=== PATIENT | male | born 1950 | race Caucasian/White ===

== ENCOUNTER 2025-02-07 10:52 | Day surgery (SDC) | payer MEDICARE, BC ==
[2025-02-04 15:39] LABS: BASOPHILS % (AUTO) 0.5 % (0-1); EOSINOPHILS # (AUTO) 0.2 X10'3 (0-0.9); LYMPHOCYTES # (AUTO) 1.2 X10'3 (1.1-4.8); MEAN CORPUSCULAR HEMOGLOBIN 23.4 PG (27.0-31.0); MEAN CORPUSCULAR HGB CONC 31.7 g/dL (33.0-36.5); MEAN PLATELET VOLUME 6.6 FL (7.4-10.4); MONOCYTES # (AUTO) 0.9 X10'3 (0-0.9); MONOCYTES % (AUTO) 9.5 % (2-12); PRE OP HEMATOCRIT 28.9 % (42.0-52.0); PRE OP PLATELET COUNT 446 X10'3 (140-440); PRE OP WHITE BLOOD COUNT 9.4 10'3 (4.8-10.8)
[2025-02-04 15:46] LABS: PRE OP HEMOGLOBIN 9.1 g/dL (14.0-17.9)
[2025-02-04 15:49] LABS: ALBUMIN 3.5 G/DL (3.4-5.0); ALKALINE PHOSPHATASE 134 IU/L (46-116); BLOOD UREA NITROGEN 11 MG/DL (7-18); BUN/CREATININE RATIO 10.9 (10.0-20.0); CALCIUM 8.5 MG/DL (8.5-10.1); CHLORIDE 97 MMOL/L (99-107); CREATININE 1.01 MG/DL (0.60-1.10); PRE OP ALT 27 U/L (30-65); PRE OP ANION GAP 6 (8-16); PRE OP AST 15 U/L (10-37); PRE OP BILIRUB, TOTAL 0.5 MG/DL (0.0-1.0); PRE OP GLUCOSE 157 MG/DL (70-104); PRE OP POTASSIUM 4.6 MMOL/L (3.4-5.1); PRE OP SODIUM 134 MMOL/L (135-145); TOTAL CARBON DIOXIDE 30.7 MMOL/L (24-32); eGFR 72 ML/MIN
[~2025-02-07] VITALS: Ht 170.2 cm; Wt 80.5 kg
[~2025-02-07 10:52] MED LIST: ALBU90AE; ASPI-1397 PO; BECL10.62; DILT120C77 PO; DULA3PEN; FLUT1BLS10 PO; FURO20TA4 PO; HYDR-3973 PO; INSU100I99 SQ; IPRA3AMP31 NEB; LISI5TAB22 PO; METF-437 PO; PANT40TA54 PO; POTA-205 PO; ROSU10TA72 PO; ringers solution, lacted 1,000 ML IV SCH
[2025-02-07 11:30] VITALS: BP 128/73; PULSE 95; RESP 16; TEMP 97.8; O2SAT 95; O2SAT 97
[2025-02-07] MEDS ORDERED: morphine 2 MG/ML inj. syringe IV PRN (11:50)
[2025-02-07] MEDS ORDERED: ringers solution, lacted 1,000 ML IV SCH (11:50)
[2025-02-07] MEDS ORDERED: morphine 4 MG/ML inj SYRINge IV PRN (11:50)
[2025-02-07] MEDS ORDERED: meperidine/PF 25mg/ml syringe IV PRN (11:50)
[2025-02-07] MEDS ORDERED: ondansetron/PF 4mg/2ml inj IV PRN (11:50)
[2025-02-07] MEDS ORDERED: proCHLORperazine 10 MG/2 ml inj IV PRN (11:50)
[2025-02-07] MEDS: famotidine 20mg tablet PO ONE (11:54)
[2025-02-07] MEDS ORDERED: fentaNYL/PF 50MCG/1 ML 2ML syringe ONE (13:11)
[2025-02-07] MEDS ORDERED: dexamethasone sod phosphate 4mg/ml inj. ONE (13:12)
[2025-02-07] MEDS ORDERED: propofol inj 20 ML IV ONE (13:12)
[2025-02-07] MEDS ORDERED: sevoflurane 250ml liquid IH ONE (13:14)
[2025-02-07] MEDS ORDERED: rocuronium 10mg/ml inj IV ONE (13:14)
[2025-02-07] MEDS ORDERED: ondansetron/PF 4mg/2ml inj ONE (13:49)
[2025-02-07] MEDS ORDERED: glycopyrrolate 0.2mg/ml inj ONE (13:56)
[2025-02-07] MEDS ORDERED: neostigmine methylsulfate 1 MG/ML 10ml vial ONE (13:56)
[2025-02-07] MEDS ORDERED: ePHEDrine 50MG/ML INJ. ONE (13:56)
[2025-02-07 14:16] VITALS: BP 139/79; PULSE 94; RESP 16; O2SAT 100
[2025-02-07 14:20] VITALS: BP 128/68; PULSE 95; RESP 25; O2SAT 100
[2025-02-07 14:30] VITALS: BP 131/68; PULSE 98; RESP 12; O2SAT 100
[2025-02-07 14:40] VITALS: BP 103/71; PULSE 101; RESP 16; O2SAT 99
== END 2025-02-07 15:16 | disposition home or self-care (01) ==
LOC: PAS 10:52
PROVIDERS: ATTEND Internal Medicine Critical Care Medicine
DX: R91.8 Other nonspecific abnormal finding of lung field (principal); I45.10 Unspecified right bundle-branch block; J44.9 Chronic obstructive pulmonary disease, unspecified; E11.9 Type 2 diabetes mellitus without complications; Z87.891 Personal history of nicotine dependence; J43.9 Emphysema, unspecified; Z79.899 Other long term (current) drug therapy; Z72.89 Other problems related to lifestyle; Z79.4 Long term (current) use of insulin; J84.10 Pulmonary fibrosis, unspecified
CPT/HCPCS: 31624; 31627; 31628; 31653; 36415; 71250; 80053; 82948; 85025; 87015; 87070; 87116; 87206; 93005; 94760; A4615; A4618; J1100; J2405; J2704; J2710; J3010; J3490; J7120; Z7506; Z7508; Z7512; Z7610; 31622; 31625; 31626; 31654; 88173; 88305